=== PATIENT | female | born 1975 | race Asian ===

== ENCOUNTER → 2017-06-14 | Outpatient (CLI) | payer OTHER ==
[2017-06-14 19:35] LABS: URINE APPEARANCE CLEAR (CLEAR); URINE BILIRUBIN NEG (NEG); URINE COLOR YELLOW; URINE NITRITE NEG (NEG); URINE SPECIFIC GRAVITY 1.016 (1.000-1.030); UROBILINOGEN NEG (NEG)
[2017-06-14 19:39] LABS: MANUAL MICROSCOPIC REQUIRED? NO; REVIEW REQ? NO
== END | disposition home or self-care (01) ==
LOC: C.LABSPEC 18:07
PROVIDERS: ATTEND Obstetrics & Gynecology
DX: O09.522 Supervision of elderly multigravida, second trimester (principal)

== ENCOUNTER → 2017-06-17 | Outpatient (CLI) | payer OTHER ==
[2017-06-17 15:44] LABS: BASO % 0.1 %; BASO ABS # 0.01 K/uL (0-0.2); COMPLETE YES; EOS % 0.7 %; HEMATOCRIT 34.6 % (37-47); IG% 0.3 %; LYMPH % 19.1 %; LYMPH ABS # 1.85 K/uL (1.2-3.4); MEAN CELL VOLUME 89.4 fL (80-100); MEAN CORPUSCULAR HEMOGLOBIN 31.3 pg (25-34); NEUT % 71.8 %; PLATELET COUNT 273 K/uL (130-400); RED BLOOD COUNT 3.87 M/uL (4.2-5.4); WHITE BLOOD COUNT 9.69 K/uL (4.8-10.8)
[2017-06-17 16:02] LABS: THYROID STIMULATING HORMONE 1.64 uIu/ml (0.300-4.500)
[2017-06-21 15:09] LABS: VARICELLA ZOS VIR IGG VALUE 792.5 INDEX
== END | disposition home or self-care (01) ==
LOC: C.LAB1850 14:06
PROVIDERS: ATTEND Obstetrics & Gynecology
DX: O09.522 Supervision of elderly multigravida, second trimester (principal); Z3A.00 Weeks of gestation of pregnancy not specified; E05.90 Thyrotoxicosis, unspecified without thyrotoxic crisis or storm

== ENCOUNTER → 2017-09-13 | Outpatient (CLI) | payer OTHER ==
[2017-09-13 17:55] LABS: HEMATOCRIT 31.8 % (37-47); HEMOGLOBIN 11.1 g/dL (12.0-16.0)
== END | disposition home or self-care (01) ==
LOC: C.LAB1850 15:49
PROVIDERS: ATTEND Obstetrics & Gynecology
DX: O09.522 Supervision of elderly multigravida, second trimester (principal); Z3A.00 Weeks of gestation of pregnancy not specified

== ENCOUNTER → 2017-11-16 | Outpatient (CLI) | payer OTHER | END | disposition home or self-care (01) | LOC: C.LABSPEC 17:36 | PROVIDERS: ATTEND Obstetrics & Gynecology | DX: O09.523 Supervision of elderly multigravida, third trimester (principal); Z3A.00 Weeks of gestation of pregnancy not specified ==

== ENCOUNTER 2017-12-03 06:10 | Inpatient (IN) | payer OTHER ==
[~2017-12-03] VITALS: Ht 160 cm; Wt 68.2 kg
[2017-12-03] VITALS (14 sets, daily range): BP systolic 113–131; BP diastolic 69–86; PULSE 86–106; TEMP 36.6–37.1; O2SAT 95–100; Ht 160 cm; Wt 68.2 kg
[~2017-12-03 06:10] MED LIST: CEFAZOLIN 2000MG IV PUSH 15 ML IV SCH
[2017-12-03] MEDS ORDERED: LACTATED RINGER'S 1000ML 1,000 ML IV SCH (06:11)
[2017-12-03 06:48] LABS: BASO % 0.1 %; BASO ABS # 0.01 K/uL (0-0.2); EOS % 1.1 %; EOS ABS # 0.09 K/uL (0-0.5); HEMATOCRIT 37.9 % (37-47); HEMOGLOBIN 13.1 g/dL (12.0-16.0); IG# 0.09 K/uL (0.00-0.02); LYMPH % 25.8 %; MEAN CELL VOLUME 93.1 fL (80-100); MEAN CORPUSCULAR HEMOGLOBIN 32.2 pg (25-34); MEAN CORPUSCULAR HGB CONC 34.6 g/dl (32-36); MEAN PLATELET VOLUME 10.4 fL (7.4-10.4); MONO % 8.2 %; MONO ABS # 0.67 K/uL (0.11-0.59); NEUT % 63.7 %; NEUT ABS # 5.17 K/uL (1.4-6.5); PLATELET COUNT 217 K/uL (130-400); RED CELL DISTRIBUTION WIDTH CV 13.5 % (11.5-14.5); WHITE BLOOD COUNT 8.13 K/uL (4.8-10.8)
[2017-12-03] MEDS ORDERED: OXYTOCIN INJ 10 UNITS/ML VIAL ONE (07:37)
[2017-12-03] MEDS ORDERED: MoRPHine SULFATE PF 1 MG/ML 10 ML AMP/VIAL ONE (07:37)
[2017-12-03] MEDS ORDERED: CEFAZOLIN IV 2,000 MG in SYRINGE 0 ML IV SCH (07:45)
--- NOTE | 2017-12-03 07:45 | HISTORY & PHYSICAL EXAMINATION ---
DATE OF ADMISSION: 12/03/2017 CHIEF COMPLAINT: Wolf intrauterine in breech position. HISTORY OF PRESENT ILLNESS: This is a 42-year-old G4, P1-0-2-1 with a prior vaginal delivery in [place] in 1999. She presents with a wolf intrauterine that is currently in breech position. This was confirmed on scan on the morning of surgery. The patient presents therefore for a planned section. PAST MEDICAL HISTORY: Hyperthyroidism, without any medication, currently normal. Also, history of varicella. PAST SURGICAL HISTORY: None. SOCIAL HISTORY: Negative x3. female. ALLERGIES: METHIMAZOLE. MEDICATIONS: vitamins. FAMILY HISTORY: Noncontributory. PHYSICAL EXAMINATION: GENERAL: The patient is alert, in no acute distress. HEART: She has regular rate and rhythm. LUNGS: Clear lungs bilaterally. ABDOMEN: She is gravid and nontender. Cervical exam is currently deferred. Weight is 149.2. VITAL SIGNS: Recent blood pressure 110/70. heart tones currently 155, moderate variability, positive accels, no decels. Toca was quiet. ASSESSMENT AND PLAN: A 42-year-old G4, P1-0-2-1 with a wolf at term in breech position for planned section.
[2017-12-03] MEDS ORDERED: CITRIC ACID/SODIUM CITRATE 15 ML UDC ONE (07:53)
[2017-12-03] MEDS ORDERED: NALOXONE HCL INJ 1 MG in SODIUM CHLORIDE 0.9% 1000ML 1,000 ML IV PRN (08:19)
[2017-12-03] MEDS ORDERED: LACTATED RINGER'S 1000ML 500 ML IV PRN (08:19)
[2017-12-03] MEDS ORDERED: NALOXONE HCL INJ 0.08 MG in SYRINGE 1.8 ML IV PRN (08:19)
[2017-12-03] MEDS ORDERED: SODIUM CHLORIDE 0.9% 1000ML 1,000 ML IV PRN (08:19)
[2017-12-03] MEDS ORDERED: ATROPINE SULFATE 0.1 MG/ML 5ML SYR IV PRN (08:30)
[2017-12-03] MEDS ORDERED: NO NARCOTICS OR SEDATIVES SCH (08:30)
[2017-12-03] MEDS ORDERED: EpHEDrine SULFATE INJ 50 MG/ML AMP IV PRN ×2 (08:30)
[2017-12-03] MEDS ORDERED: ONDANSETRON INJ 2 MG/ML 2 ML VIAL IV PRN ×2 (08:30)
[2017-12-03] MEDS ORDERED: MoRPHine SULFATE PF 1 MG/ML 10 ML AMP/VIAL EPI PRN (08:30)
[2017-12-03] MEDS ORDERED: FENTANYL CITRATE INJ 50 MCG/1 ML 2 ML VIAL IV PRN (08:30)
[2017-12-03] MEDS ORDERED: KETOROLAC TROMETHAMINE 30 MG/ML VIAL IV. PRN (08:30)
[2017-12-03] MEDS ORDERED: NALOXONE HCL 0.4 MG/1 ML VIAL/CARP IV PRN (08:30)
[2017-12-03] MEDS ORDERED: MEPERIDINE HCL 25 MG/ML CARP IV PRN ×2 (08:30)
[2017-12-03] MEDS ORDERED: HYDROmorphone INJ 0.5 MG/0.5 ML SYR IV PRN (08:30)
[2017-12-03] MEDS ORDERED: DiphenhydrAMINE HCL 50 MG/ML VIAL IV PRN ×2 (08:30)
[2017-12-03] MEDS ORDERED: LABETALOL HCL IV 5 MG/ML 20ML IV PRN (08:30)
[2017-12-03] MEDS ORDERED: MoRPHine SULFATE 2 MG/ML CARP IV PRN (08:30)
[2017-12-03] MEDS ORDERED: NALBUPHINE HCL INJ 10 MG/ML AMP IV PRN (08:30)
[2017-12-03] MEDS ORDERED: EpHEDrine SULFATE 50MG/5ML SYR ONE (09:05)
[2017-12-03] MEDS ORDERED: PHENYLEPHRINE 100MCG/ML 5ML SYR ONE (09:05)
--- NOTE | 2017-12-03 09:13 | [facility] Post Operative Brief Note ---
Immediate Operative Summary Operative Date Dec 03, 2017. Pre-Operative Diagnosis 39+2 weeks gestation, primary Caesarean section for breech presentation. Post-Operative Diagnosis Same as pre-op. Procedure(s) Performed Live Male Infant at [address] Lowery Army Manager Surgeon(s) Dr Watson Estimated Blood Loss 600 Findings Consistent with Post-Op Diagnosis Specimens Placenta Cord blood Drains None Anesthesia Type Spinal Complication(s) none Disposition Accompanied Pt To Recover: yes Disposition: L&D
[2017-12-03] MEDS ORDERED: LANOLIN OINT EXT PRN (09:15)
[2017-12-03] MEDS ORDERED: HYDROCORTISONE ACETATE 25 MG SUPP PR PRN (09:15)
[2017-12-03] MEDS ORDERED: SUPERCREAM 0.870 % 15GM JAR EXT PRN (09:15)
[2017-12-03] MEDS ORDERED: BENZOCAINE 20% AER SPR 82.5 GM CAN EXT PRN (09:15)
--- NOTE | 2017-12-03 09:43 | OPERATIVE REPORT ---
DATE OF OPERATION: 12/03/2017 PREOPERATIVE DIAGNOSES: 1. Webb intrauterine at 39 and 2/7 weeks' gestation. 2. Breech presentation. POSTOPERATIVE DIAGNOSES: Same. PROCEDURE: Primary low transverse section for a live male at 08:49 a.m. SURGEON: Dr. Freda Lowery. FABRIC DESIGNER: PGY-1. ESTIMATED BLOOD LOSS: 600 mL. FINDINGS: Consistent with operative diagnoses. Ovaries and tubes normal bilaterally. SPECIMENS: Placenta and cord blood. DRAINS: None. ANESTHESIA: Spinal. COMPLICATIONS: None. DISPOSITION: Stable to labor and delivery. DESCRIPTION OF DESCRIPTION: Eber is a 42-year-old G4, P1-0-2-1, who presented with a webb intrauterine in breech presentation confirmed on ultrasound the day of surgery and at full term gestation. She was brought to the operating room for a planned primary low transverse section and adequate anesthesia was established. The patient was placed in the supine position with a leftward tilt and prepped and draped in standard sterile fashion and a hard time-out was taken prior to proceeding. A Pfannenstiel incision was created and carried down sharply to the fascia, which was incised using Nobles scissors. The fascia was elevated and then sharply and bluntly dissected off the underlying rectus. The rectus were then bluntly in the midline and the peritoneum was entered bluntly. The bladder blade was placed and a bladder flap was created. The bladder retractor was then replaced behind this flap. The lower uterine segment was examined and found to be well developed with palpable breech behind. The hysterotomy was created using a scalpel with final entry to the uterus made in a blunt manner for clear amniotic fluid. The fetus was encountered in a double footling breech position with the sacrum posterior. The feet were grasped and delivered through the incision. Male genitalia were visualized and urination was noted from the fetus at this point. The fetus was then rotated into a sacrum anterior position and then delivered using a damp sponge to hold the body, which was gently elevated while the right and then left arms were swept in physiologic fashion. The head was then delivered maintaining flexion at all times using mild fundal pressure. A triple nuchal cord was noted and was reduced. The umbilical cord was then doubly clamped and cut and the infant was taken to the warmer by Dr. Ley. The placenta was then manually extracted and passed off the table after collection of cord blood. The uterus was exteriorized and gently cleared of all clot and debris using a dry lap sponge. The angles of the hysterotomy were identified with Allis clamps and the hysterotomy was then repaired in 2-layer fashion using 0 Vicryl suture. At the completion of the repair, the hysterotomy was hemostatic and completely intact. Uterus was anteflexed and the posterior gutter was cleared of all clot and debris using suction and irrigation. The uterus was then gently reapproximated. A retractor was then used to expose each lateral gutter, which was cleared of all clot and debris and a damp lap sponge was used to pack each gutter while the hysterotomy was examined off tension. The hysterotomy was found to be intact and hemostatic. Adiel clamps were then placed on the angles of the fascia, which was repaired in a usual fashion with a nonlocked running #1 Vicryl suture. At the completion of the repair, the fascia was found to be free of any defect. The subcutaneous tissue was copiously irrigated and then gently reapproximated with a 3-0 chromic suture. A 4-0 Monocryl was then used to close the skin in a running subcuticular manner and a Dermabond dressing was applied. The Silvestre was noted to be draining clear yellow urine as the patient was transferred back to her recovery room in stable condition. I attest to the content of the Intraoperative Record and any orders documented therein. Any exception s are noted below.
--- NOTE | 2017-12-03 11:35 | Anesthesiology Progress Note ---
Anesthesia Post Op Note Date & Time Dec 03, 2017 at 11:34 Notes Mental Status: alert / awake / arousable, participated in evaluation Pt Amnestic to Procedure: Yes Nausea / Vomiting: adequately controlled Pain: adequately controlled Airway Patency, RR, SpO2: stable & adequate BP & HR: stable & adequate Hydration State: stable & adequate Neuraxial Anesthesia: was administered, sensory block is resolving Anesthetic Complications: no major complications apparent
[2017-12-03] MEDS: OXYTOCIN INJ 30 UNITS in LACTATED RINGER'S 1000ML 1,000 ML IV SCH ×2 (11:41→20:27)
[2017-12-03] MEDS: SIMETHICONE 80 MG CHEW PO SCH ×3 (12:11→20:00)
[2017-12-03] MEDS: DOCUSATE SODIUM 100 MG CAP PO SCH (20:00)
[2017-12-04] VITALS (8 sets, daily range): BP systolic 109–117; BP diastolic 70–77; PULSE 83–100; TEMP 36.4–37.2; O2SAT 96–99
[2017-12-04] MEDS ORDERED: DC INTRASPINAL MORPHINE ONE (02:30)
[2017-12-04] MEDS ORDERED: DiphenhydrAMINE HCL 50 MG/ML VIAL IV PRN (02:31)
[2017-12-04] MEDS ORDERED: KETOROLAC TROMETHAMINE 30 MG/ML VIAL IV. PRN (02:31)
[2017-12-04] MEDS ORDERED: OXYCODONE/ACETAMINOPHEN 5-325 TAB PO PRN (02:31)
--- NOTE | 2017-12-04 06:12 | Discharge Instructions ---
Discharge Instructions Date of Service Dec 04, 2017. Admission Reason for Admission: Breech Presentation Discharge Discharge Diagnosis / Problem: delivery Discharge Goals Goal(s): Routine recovery after Medications Continue Dispensed Medications: supercream, dermaplast, tucks, lansinoh Activity Recommendations Activity Limitations: per Instructions/Follow-up section . Instructions / Follow-Up Instructions / Follow-Up ACTIVITY RECOMMENDATIONS: * Gradual return to full activity over the next 2-3 weeks. * No lifting - nothing heavier than baby over the next 2-3 weeks. * Do not engage in vigorous exercise, sexual activity or sports until cleared by your physician. * Do not drive or operate any motorized equipment until cleared by your physician. * You may shower/bathe daily. MEDICATIONS: For discomfort or pain, you may use Acetaminophen (Tylenol), Ibuprofen (Advil), or Naproxen (Aleve) following the package directions. For constipation you may use Colace following the package directions. BREAST CARE: If you are not breast feeding: * Wear a supportive bra 24 hours a day for one to two weeks. * Avoid stimulating your breasts and nipples as much as possible during the first few weeks after delivery. * When taking a shower, have the warm water hit your back, not breasts. * When your breasts feel full, apply ice packs. Usually three to four times a day helps ease the discomfort. * Take a mild pain medication (Tylenol / Motrin) when you are uncomfortable. If breast feeding: * Use breast milk to lubricate nipples. Lansinoh cream may be used for sore nipples. You do not need to remove cream prior to breast feeding. If using a different brand of cream, check the label for directions regarding removal of cream prior to nursing. * Wear a supportive bra. * If having problems with breasts or breast feeding, call a residential solar consultant or your health care provider. SPECIAL CARE INSTRUCTIONS: When you are discharged from the hospital, it is important for you to follow the instructions listed below: * During the first week at home, you should be able to care for yourself and your baby. In addition, the usual light household activities are encouraged. * Limit your activities to the way you feel. Do not try to clean the house or move furniture. Be sensible. * If you actively engage in sports and have done so up until the time of your delivery, you may resume these activities as soon as you feel able. This may take up to one month or even longer. Use good judgment. * Continue to take your vitamins for at least six weeks after the of your baby. * Your diet need not be limited unless you were on a special diet before your delivery. Breast-feeding mothers need around 2500 calories per day and at least 64-80 ounces of fluid per day (8 to 10 glasses). * You should eat foods from the four major food groups. Crash diets or fad diets are to be avoided. Eating lean meats, fresh fruits and vegetables, low-fat dairy products, high fiber foods and a regular exercise program, will help you get back to your pre- weight without putting your health at risk. * Constipation is sometimes a problem after delivery. Take a mild laxative as needed. If breast feeding, Milk of Magnesia is acceptable to use. You may use a suppository or Fleets enema. * A daily shower or tub bath is suggested. Wash incision daily with warm soapy water and pat dry. It doesn't need to be covered unless drainage is present. * A bloody vaginal discharge will usually continue until around four weeks . A small amount of bleeding may continue for as long as six weeks. Vaginal discharge changes from the bright red bleeding after delivery to pink then brownish and finally yellowish-pink before becoming white and disappearing. * Bleeding may increase with activity. Your first period may come in 4-8 weeks. If you are breast feeding, your period may be delayed even longer. * Sattley (sex) can begin whenever both you and your partner feel comfortable and do not have any form of genital infection. It is recommended that you wait at least six weeks for internal and external healing to occur. If you have questions, please talk to your health care practitioner. A condom should be used to prevent infection and . * Foreplay, gentle intercourse and lubrication is very important the first several times to prevent pain. A water-based lubricant such as K-Y jelly or Astroglide may be used. * If you have RH negative blood and your baby is RH positive, you will receive RHOGAM by injection prior to discharge. The nurse will give you a card to keep with you that has the date and place that you received RHOGAM after delivery. * During your care, you had a Rubella screen done to check for the presence of rubella antibodies in your blood. If your test was negative, you will receive a Rubella vaccine prior to discharge. This vaccine may cause a fever, soreness at the injection site and flu-like symptoms. If these symptoms persist, notify your health care practitioner. is not advised for one month after a Rubella vaccine. * Verbalizes understanding of car seat law as reviewed with patient nursing. * Car Seat hand-out given and reviewed with patient by nursing. * Shaken baby information reviewed with patient by nursing. Call you doctor if: * Heavy bleeding (saturating several pads an hour) or passing clots the size of your fist. * A fever >101 degrees F (38.3 degrees C) on two occasions four hours apart and /or chills. * Unusual pain in the pelvic or vaginal areas. * Call the doctor for any increased redness, drainage or swelling around the incision and any pain unrelieved by prescribed pain medication. * "Baby Blues" lasting longer than two weeks. If you have any questions or concerns, call your health care practitioner at . FOLLOW UP VISIT: * Please call the office at to schedule a 6 week examination. It is important you keep this appointment. It is important for you to make arrangements for either yearly or twice yearly check-ups thereafter. Current Hospital Diet Patient's current hospital diet: Clear Liquid Diet Discharge Diet Recommended Diet: Regular Diet, Regular OB Diet Procedures Procedures Performed: Live Male Infant at 0849 Pending Studies Studies pending at discharge: no Medical Emergencies . Who to Call and When: Medical Emergencies: If at any time you feel your situation is an emergency, please call [phone] immediately. . Non-Emergent Contact Non-Emergency issues call your: Primary Care Provider, Consumer Sales Representative . . "Provider Documentation" section prepared by Amilcar Watson. .
[2017-12-04 06:51] LABS: BASO % 0.1 %; BASO ABS # 0.01 K/uL (0-0.2); EOS % 0.5 %; EOS ABS # 0.05 K/uL (0-0.5); HEMATOCRIT 29.1 % (37-47); HEMOGLOBIN 10.4 g/dL (12.0-16.0); IG# 0.05 K/uL (0.00-0.02); LYMPH ABS # 1.35 K/uL (1.2-3.4); MEAN CELL VOLUME 92.7 fL (80-100); MEAN CORPUSCULAR HEMOGLOBIN 33.1 pg (25-34); MEAN CORPUSCULAR HGB CONC 35.7 g/dl (32-36); MEAN PLATELET VOLUME 9.8 fL (7.4-10.4); MONO % 7.5 %; MONO ABS # 0.78 K/uL (0.11-0.59); NEUT % 78.4 %; NEUT ABS # 8.11 K/uL (1.4-6.5); PLATELET COUNT 179 K/uL (130-400); RED CELL DISTRIBUTION WIDTH CV 13.5 % (11.5-14.5); RED CELL DISTRIBUTION WIDTH SD 45.6 fL (36.4-46.3); WHITE BLOOD COUNT 10.35 K/uL (4.8-10.8)
--- NOTE | 2017-12-04 07:16 | Progress Note ---
Subjective Dec 04, 2017. Subjective conversation w/ patient, conversation w/ family, physical exam, chart review, lab review Ambulation: ambulating normally Voiding: kent catheter in place Passing Gas: Yes Diet Tolerance: Clear Liquids Lochia: Moderate Feeding Type: Breast Feeding Review of Systems Constitutional: No fever, No chills Respiratory: No cough, No shortness of breath Cardiac: No chest pain, No palpitations Abdomen: No pain, No nausea, No vomiting Female : No dysuria Objective Vital Signs Date Time Temp Pulse Resp B/P (MAP) Pulse Ox O2 Delivery O2 Flow Rate FiO2 12/04/17 03:45 16 97 12/04/17 03:45 37.0 100 16 116/75 (89) 97 Room Air 12/04/17 03:00 16 96 12/04/17 02:00 18 98 12/04/17 01:00 16 97 12/04/17 00:00 37.2 97 18 111/71 (84) 98 Room Air 12/04/17 00:00 18 98 12/04/17 00:00 98 Room Air 12/03/17 23:00 18 98 12/03/17 22:00 16 99 12/03/17 21:00 16 98 12/03/17 20:30 37.1 97 18 113/75 (88) 95 Room Air 12/03/17 19:50 18 95 12/03/17 18:42 18 100 12/03/17 17:45 16 100 12/03/17 16:45 18 100 12/03/17 15:55 100 Room Air 12/03/17 15:55 18 100 12/03/17 15:55 36.7 90 20 113/75 (88) 100 Room Air 12/03/17 14:45 36.7 89 16 113/75 (88) 99 Room Air 12/03/17 14:45 36.7 89 16 113/75 (88) 99 Room Air 12/03/17 14:45 16 99 12/03/17 13:45 18 100 12/03/17 13:45 36.6 106 18 131/86 (101) 100 Room Air 12/03/17 12:45 36.6 92 18 131/78 (95) 100 Room Air 12/03/17 12:45 18 100 12/03/17 12:45 36.6 92 18 131/78 (95) 100 Room Air 12/03/17 12:15 95 18 128/82 (97) 100 Room Air 12/03/17 11:45 36.6 86 16 118/69 (85) 100 Room Air 12/03/17 11:45 100 Room Air 12/03/17 11:45 16 100 Physical Exam General Appearance: WELL-APPEARING, WD/WN, NO APPARENT DISTRESS Respiratory/Chest: lungs clear, no respiratory distress Cardiovascular: regular rate, rhythm, no murmur Abdomen: normal bowel sounds, non tender Fundus: Firm, Relation to Umbilicus (at the level of the umbillicus ) Incision Description: Clean, Dry & Intact Extremities: non-tender, normal inspection Laboratory Results Last 24 Hours Test 12/04/17 06:33 White Blood Count 10.35 K/uL Red Blood Count 3.14 M/uL Hemoglobin 10.4 g/dL Hematocrit 29.1 % Mean Corpuscular Volume 92.7 fL Mean Corpuscular Hemoglobin 33.1 pg Mean Corpuscular Hemoglobin Concent 35.7 g/dl Platelet Count 179 K/uL Mean Platelet Volume 9.8 fL Neutrophils (%) (Auto) 78.4 % Lymphocytes (%) (Auto) 13.0 % Monocytes (%) (Auto) 7.5 % Eosinophils (%) (Auto) 0.5 % Basophils (%) (Auto) 0.1 % Neutrophils # (Auto) 8.11 K/uL Lymphocytes # (Auto) 1.35 K/uL Monocytes # (Auto) 0.78 K/uL Eosinophils # (Auto) 0.05 K/uL Basophils # (Auto) 0.01 K/uL RDW Standard Deviation 45.6 fL RDW Coefficient of Variation 13.5 % Immature Granulocyte % (Auto) 0.5 % Immature Granulocyte # (Auto) 0.05 K/uL Medications Current Inpatient Medications Medications (Trade) Dose Ordered Sig/Jasmina Route Start Time Stop Time Status Last Admin Dose Admin Lactated Ringer's 1,000 ml @ 1,000 mls/hr Q1H IV 12/03/17 06:11 01/02/18 06:10 12/03/17 07:47 1,000 MLS/HR Fentanyl Citrate (Fentanyl Inj) 50 mcg Q5M PRN IV 12/03/17 08:30 12/04/17 13:30 Hydromorphone HCl (Dilaudid Inj) 0.5 mg Q5M PRN IV 12/03/17 08:30 12/04/17 13:30 Meperidine HCl (Demerol Inj) 25 mg Q5M PRN IV 12/03/17 08:30 12/04/17 13:30 Ondansetron HCl (Zofran Inj) 4 mg ONE PRN IV 12/03/17 08:30 12/04/17 13:30 Labetalol HCl (Normodyne IV) 5 mg Q5M PRN IV 12/03/17 08:30 12/04/17 13:30 Atropine Sulfate (Atropine Sulfate 0.1mg/ml Inj) 0.5 mg Q1M PRN IV 12/03/17 08:30 12/04/17 13:30 Oxytocin 30 units/ Lactated Ringer's 1,003 ml @ 125 mls/hr Q8H2M IV 12/03/17 09:30 01/02/18 09:29 12/03/17 20:27 125 MLS/HR Ketorolac Tromethamine (Toradol Inj) 30 mg Q6H PRN IV. 12/04/17 02:31 12/09/17 02:30 Oxycodone/ Acetaminophen (Percocet 5-325mg Tab) 1 tab Q4H PRN PO 12/04/17 02:31 12/18/17 02:30 Oxycodone/ Acetaminophen (Percocet 5-325mg Tab) 2 tab Q4H PRN PO 12/04/17 02:31 12/18/17 02:30 Ibuprofen (Motrin Tab) 600 mg Q4H PRN PO 12/03/17 09:15 01/02/18 09:14 Docusate Sodium (coLACE CAP) 100 mg BID PO 12/03/17 20:00 01/02/18 19:59 Cocaine HCl (Supercream 0.870% Cr) BID PRN EXT 12/03/17 09:15 12/17/17 09:14 Lanolin (Lanolin Oint) PRN PRN EXT 12/03/17 09:15 01/02/18 09:14 Hydrocortisone Acetate (Anusol Hc Supp) 25 mg BID PRN MD 12/03/17 09:15 01/02/18 09:14 Benzocaine (Dermoplast Aero Spr) 1 appln PRN PRN EXT 12/03/17 09:15 01/02/18 09:14 Simethicone (Mylicon Chew Tab) 80 mg QID PO 12/03/17 12:11 01/02/18 12:59 12/03/17 17:26 80 MG Diphenhydramine HCl (Benadryl Cap) 25 mg QID PRN PO 12/04/17 02:31 01/03/18 02:30 Diphenhydramine HCl (Benadryl Inj) 25 mg QID PRN IV 12/04/17 02:31 01/03/18 02:30 Assessment and Plan Problem List Medical Problems: (1) Threatened miscarriage in early Status: Acute Post-Op Day#: 1 Continue Routine Care: Resident Physician Supervision Note: 42 yo female post op day 1. Pt is A+/GBS-/RI. Vitals reviewed, WNL. Hgb 13.1 at admission, pending this am. Adequate output yesterday. Kent was removed early in the am. No voiding since removal. Patient is doing well clinically. 1. Recovery from c section; cont. pp care; ambulate, support BP, monitor lochia , control pain. Advance diet today and continue to follow i/o's. I interviewed and examined the patient. Discussed with Dr. Watson and agree with findings and plan as documented in the note. Any exceptions or clarifications are listed here: [None] Documented By: Freda Lowery
[2017-12-04] MEDS: SIMETHICONE 80 MG CHEW PO SCH ×4 (08:58→19:56)
[2017-12-04] MEDS: DOCUSATE SODIUM 100 MG CAP PO SCH ×2 (08:58→19:51)
[2017-12-04] MEDS: IBUPROFEN 600 MG TAB PO PRN ×2 (09:44→20:07)
[2017-12-04] MEDS: OXYCODONE/ACETAMINOPHEN 5-325 TAB PO PRN ×2 (09:45→20:07)
[2017-12-05 06:17] LABS: HEMATOCRIT 29.8 % (37-47); HEMOGLOBIN 10.3 g/dL (12.0-16.0)
[2017-12-05] MEDS: DOCUSATE SODIUM 100 MG CAP PO SCH ×2 (08:00→19:31)
[2017-12-05] MEDS: SIMETHICONE 80 MG CHEW PO SCH ×4 (08:00→19:31)
[2017-12-05 08:15] VITALS: BP 127/79; PULSE 87; TEMP 36.8; O2SAT 98
--- NOTE | 2017-12-05 09:33 | Progress Note ---
Subjective Dec 05, 2017. Subjective conversation w/ patient, physical exam Ambulation: ambulating normally Voiding: no voiding problems Feeding Type: Breast Feeding Objective Vital Signs Date Time Temp Pulse Resp B/P (MAP) Pulse Ox O2 Delivery O2 Flow Rate FiO2 12/04/17 23:45 36.4 83 16 117/77 (90) 96 Room Air 12/04/17 23:45 96 Room Air 12/04/17 16:37 Room Air 12/04/17 16:34 36.7 86 16 109/70 (83) 99 Room Air Physical Exam General Appearance: WELL-APPEARING, NO APPARENT DISTRESS Respiratory/Chest: lungs clear Cardiovascular: regular rate, rhythm Fundus: Firm Incision Description: Clean, Dry & Intact Extremities: no calf tenderness Laboratory Results Last 24 Hours Test 12/05/17 06:06 Hemoglobin 10.3 g/dL Hematocrit 29.8 % Assessment and Plan Problem List Medical Problems: (1) Threatened miscarriage in early Status: Acute Post-Op Day#: 2 Continue Routine Care: - ambulating doing well - routine care
[2017-12-05] MEDS: IBUPROFEN 600 MG TAB PO PRN (14:04)
[2017-12-05 15:50] VITALS: BP 123/82; PULSE 80; TEMP 36.9; O2SAT 98
[2017-12-06 00:10] VITALS: BP 119/83; PULSE 86; TEMP 37.1; O2SAT 98
[2017-12-06] MEDS ORDERED: FRRS300 PO (06:00)
[2017-12-06] MEDS ORDERED: OXYC-57 PO (06:00)
--- NOTE | 2017-12-06 06:52 | Progress Note ---
Subjective Dec 06, 2017. Subjective conversation w/ patient, conversation w/ family, physical exam, chart review, lab review Ambulation: ambulating normally Voiding: no voiding problems Passing Gas: Yes Diet Tolerance: Regular Diet Lochia: Small Feeding Type: Breast Feeding Pain: pain at incision is controlled Review of Systems Constitutional: No fever, No chills Respiratory: No cough, No shortness of breath Cardiac: No chest pain Abdomen: No pain, No nausea, No vomiting Female : No dysuria Objective Vital Signs Date Time Temp Pulse Resp B/P (MAP) Pulse Ox O2 Delivery O2 Flow Rate FiO2 12/06/17 00:10 98 Room Air 12/06/17 00:10 37.1 86 16 119/83 (95) 98 Room Air 12/05/17 15:50 Room Air 12/05/17 15:50 36.9 80 18 123/82 (96) 98 Room Air 12/05/17 08:15 98 Room Air 12/05/17 08:15 36.8 87 18 127/79 (95) 98 Room Air Physical Exam General Appearance: WELL-APPEARING, WD/WN, NO APPARENT DISTRESS Respiratory/Chest: lungs clear, no respiratory distress Cardiovascular: regular rate, rhythm, no murmur Abdomen: normal bowel sounds, non tender Fundus: Firm, Relation to Umbilicus (2 cm below u) Incision Description: Clean, Dry & Intact Extremities: non-tender, normal inspection Medications Current Inpatient Medications Medications (Trade) Dose Ordered Sig/Jasmina Route Start Time Stop Time Status Last Admin Dose Admin Lactated Ringer's 1,000 ml @ 1,000 mls/hr Q1H IV 12/03/17 06:11 01/02/18 06:10 12/03/17 07:47 1,000 MLS/HR Oxytocin 30 units/ Lactated Ringer's 1,003 ml @ 125 mls/hr Q8H2M IV 12/03/17 09:30 01/02/18 09:29 12/03/17 20:27 125 MLS/HR Ketorolac Tromethamine (Toradol Inj) 30 mg Q6H PRN IV. 12/04/17 02:31 12/09/17 02:30 Oxycodone/ Acetaminophen (Percocet 5-325mg Tab) 1 tab Q4H PRN PO 12/04/17 02:31 12/18/17 02:30 12/04/17 20:07 1 TAB Oxycodone/ Acetaminophen (Percocet 5-325mg Tab) 2 tab Q4H PRN PO 12/04/17 02:31 12/18/17 02:30 Ibuprofen (Motrin Tab) 600 mg Q4H PRN PO 12/03/17 09:15 01/02/18 09:14 12/05/17 14:04 600 MG Docusate Sodium (coLACE CAP) 100 mg BID PO 12/03/17 20:00 01/02/18 19:59 12/05/17 19:31 100 MG Cocaine HCl (Supercream 0.870% Cr) BID PRN EXT 12/03/17 09:15 12/17/17 09:14 Lanolin (Lanolin Oint) PRN PRN EXT 12/03/17 09:15 01/02/18 09:14 Hydrocortisone Acetate (Anusol Hc Supp) 25 mg BID PRN LA 12/03/17 09:15 01/02/18 09:14 Benzocaine (Dermoplast Aero Spr) 1 appln PRN PRN EXT 12/03/17 09:15 01/02/18 09:14 Simethicone (Mylicon Chew Tab) 80 mg QID PO 12/03/17 12:11 01/02/18 12:59 12/05/17 19:31 80 MG Diphenhydramine HCl (Benadryl Cap) 25 mg QID PRN PO 12/04/17 02:31 01/03/18 02:30 Diphenhydramine HCl (Benadryl Inj) 25 mg QID PRN IV 12/04/17 02:31 01/03/18 02:30 Assessment and Plan Problem List Medical Problems: (1) Threatened miscarriage in early Status: Acute Post-Op Day#: 3 Continue Routine Care: 42 F post op day 3 Pt is A+/GBS-/RI. Doing well clinically. Reviewed vitals, WNL. Hgb is stable, no signs or sx of anemia. Planning today for discharge. Plan; 1. Recovery from csection; discharge planning today. Continue pp care; ambulate , support BF, ambulate, monitor lochia Resident Physician Supervision Note: I interviewed and examined the patient. Discussed with Dr. Watson and agree with findings and plan as documented in the note. Any exceptions or clarifications are listed here: D/C instructions reviewed with the patient, f/u in 6 weeks Documented By: Segundo Gonzalez
--- NOTE | 2017-12-06 08:14 | Anesthesiology Progress Note ---
Anesthesia Post Op Note Date & Time Dec 06, 2017 at 08:14 Vital Signs Pain Intensity: 6.0 Vital Signs Past 12 Hours Date Time Temp Pulse Resp B/P (MAP) Pulse Ox O2 Delivery O2 Flow Rate FiO2 12/06/17 00:10 98 Room Air 12/06/17 00:10 37.1 86 16 119/83 (95) 98 Room Air Notes Mental Status: alert / awake / arousable, participated in evaluation Pt Amnestic to Procedure: Yes Nausea / Vomiting: adequately controlled Pain: adequately controlled Airway Patency, RR, SpO2: stable & adequate BP & HR: stable & adequate Hydration State: stable & adequate Neuraxial Anesthesia: sensory block resolved Anesthetic Complications: no major complications apparent
[2017-12-06 08:50] VITALS: BP 130/88; PULSE 97; TEMP 37; O2SAT 97
[2017-12-06] MEDS ORDERED: MISC-836 (09:03)
[2017-12-06] MEDS: OXYCODONE/ACETAMINOPHEN 5-325 TAB PO PRN (09:06)
[2017-12-06] MEDS: DOCUSATE SODIUM 100 MG CAP PO SCH (09:06)
[2017-12-06] MEDS: SIMETHICONE 80 MG CHEW PO SCH ×2 (09:06→12:25)
[2017-12-06] MEDS: IBUPROFEN 600 MG TAB PO PRN (09:07)
[2017-12-06 13:07] VITALS: BP_DIAS 88; PULSE 97; TEMP 37
== END 2017-12-06 13:00 | disposition home or self-care (01) | DRG 766 ==
LOC: C.LD 06:10 → EDSTATUS 09:00 → C.OBG 12:11
PROVIDERS: ADMIT Obstetrics & Gynecology; ATTEND Obstetrics & Gynecology
PROC: 10D00Z0 Extraction of Products of Conception, High, Open Approach (ICD-10-PCS; principal; 2017-12-03 07:30)
DX: O32.1XX0 Maternal care for breech presentation, not applicable or unspecified (principal); Z3A.39 39 weeks gestation of pregnancy; Z37.0 Single live birth

== ENCOUNTER → 2018-01-10 | Outpatient (CLI) | payer OTHER ==
[~2018-01-10] MED LIST changes: -CEFAZOLIN 2000MG IV PUSH 15 ML IV SCH; +FRRS300 PO; +MISC-836; +OXYC-57 PO
== END | disposition home or self-care (01) ==
LOC: C.PAPS 14:40
PROVIDERS: ATTEND Obstetrics & Gynecology
DX: Z12.4 Encounter for screening for malignant neoplasm of cervix (principal)